=== PATIENT | male | born 1990 | race Hispanic/Latino ===

== ENCOUNTER 2018-11-13 18:15 | Emergency (ER) | payer SELFPAY ==
[2018-11-13 18:47] VITALS: RESP 18; O2SAT 99
--- NOTE | 2018-11-13 19:08 | ED PDOC ---
HPI: Chest Pain Time Seen by Provider: 11/13/18 18:30 Chief Complaint (Nursing): Chest Pain Chief Complaint (Provider): Chest pain History Per: Patient Additional Complaint(s): According to EMS, Patient C/O chest pain - onset appx 4 hours [employer] to ED. At this time Pt requesting to leave ED. Pt reports that "i changed my mind, I feel ok, I want to leave." Pt calm, cooperative and speaking in complete sentences Past Medical History Reviewed: Nursing Documentation, Vital Signs Vital Signs: Last Vital Signs Temp Pulse 83 11/13/18 18:44 Resp 18 11/13/18 18:44 BP 125/76 11/13/18 18:44 Pulse Ox 99 11/13/18 18:44 - Family History Family History: States: Unknown Family Hx - Immunization History Hx Tetanus Toxoid Vaccination: No Hx Influenza Vaccination: No Hx Pneumococcal Vaccination: No - Allergies Allergies/Adverse Reactions: Allergies Allergy/AdvReac Type Severity Reaction Status Date / Time No Known Allergies Allergy Verified 11/13/18 18:18 - ECG O2 Sat by Pulse Oximetry: 99 Medical Decision Making Medical Decision Making: Pt refuses ED Exam and treatment plan Disposition - Clinical Impression Clinical Impression: Chest pain - Patient ED Disposition Is Patient to be Admitted: No - Disposition Disposition: Left W/O Treatment Disposition Time: 19:10 Condition: STABLE Forms: [facility] (Citizen Of [place])
[2018-11-13 23:40] VITALS: BP 120/65; PULSE 80
== END 2018-11-13 19:04 | disposition left against medical advice (07) ==
LOC: H.ER 18:15
DX: R07.89 Other chest pain (principal)